=== PATIENT | male | born 1985 | race Caucasian/White ===

== ENCOUNTER 2020-09-17 14:56 | Emergency (ER) | payer OTHER ==
[~2020-09-17] VITALS: Ht 167.6 cm; Wt 104.3 kg
[2020-09-17] MEDS ORDERED: ZANAFLEX4 MG PO (17:05)
[2020-09-17] MEDS ORDERED: IBUPROFEN 800800 M1 PO (17:05)
[2020-09-17 17:41] VITALS: BP 132/66
== END 2020-09-17 17:44 | disposition home or self-care (01) ==
LOC: M.ERS 14:56
DX: S16.1XXA Strain of muscle, fascia and tendon at neck level, initial encounter (principal); S29.012A Strain of muscle and tendon of back wall of thorax, initial encounter; V89.2XXA Person injured in unspecified motor-vehicle accident, traffic, initial encounter; Y93.89 Activity, other specified; Y92.89 Other specified places as the place of occurrence of the external cause; Y99.8 Other external cause status